=== PATIENT | male | born 1950 ===

== ENCOUNTER 2021-10-29 05:30 | Day surgery (SDC) | payer OTHER ==
[~2021-10-29] VITALS: Ht 175.3 cm; Wt 90.3 kg
[~2021-10-29 05:30] MED LIST: ADULT LOW DOSE81 M1 PO; ATORVASTATIN CA10 MG PO; COZAAR25 MG PO; NORVASC5 MG PO; SYNTHROID88 MCG PO
[2021-10-29] MEDS ORDERED: CEFADROXIL500 MG PO (12:39)
[2021-10-29] MEDS ORDERED: ULTRACET PO (12:41)
== END 2021-10-29 14:35 | disposition home or self-care (01) ==
LOC: CIR.AMB 05:30
PROVIDERS: ATTEND Surgery
DX: D17.22 Benign lipomatous neoplasm of skin and subcutaneous tissue of left arm (principal); D17.1 Benign lipomatous neoplasm of skin and subcutaneous tissue of trunk; Z20.822 Contact with and (suspected) exposure to COVID-19; I10 Essential (primary) hypertension; Z86.73 Personal history of transient ischemic attack (TIA), and cerebral infarction without residual deficits; E66.9 Obesity, unspecified; E03.9 Hypothyroidism, unspecified